=== PATIENT | female | born 1950 | race Caucasian/White ===

== ENCOUNTER → 2017-12-05 | Outpatient (CLI) | payer OTHER, BC ==
--- NOTE | 2017-12-05 15:52 | 2DMMODE ---
[place] [address] 2 D/M-MODE ECHOCARDIOGRAM Name: LUISA KIRKPATRICK I Room: [facility]#: [id number] Admission: 12/05/17 Attend Phys: Pardeep Adorno, Discharge: Date of : 50 Date of Service: 12/05/17 1551 Report #: [id number] THIS REPORT FOR: //name// APPROVED REPORT Study performed: 12/05/2017 13:02:38 EXAM: Comprehensive 2D, Doppler, and color-flow Echocardiogram Patient Location: Out-Patient Status: routine BSA: 0.39 HR: 70 bpm BP: 140/80 mmHg Other Information Study Quality: Good Indications Aortic Valve Disease 2D Dimensions LVEF(%): 66.72 (>50%) IVSd: 10.15 (7-11mm) LVOT Diam: 20.18 (18-24mm) LVDd: 43.50 mm PWd: 9.20 (7-11mm) Ascending Ao: 30.11 (22-36mm) LVDs: 27.55 (25-40mm) Aortic Root: 21.26 mm Pradhan's LVEF: 66.72 % Volumes Left Atrial Volume (Systole) LA ESV Index: 15.90 mL/m2 Aortic Valve AoV Peak Gato.: 1.80 m/s AO Peak Gr.: 13.00 mmHg LVOT Max P.05 mmHg AO Mean Gr.: 7.45 mmHg LVOT Mean P.12 mmHg LVOT Max V: 1.33 m/s AO V2 VTI: 38.96 cm LVOT Mean V: 0.96 m/s BALBINA (VTI): 2.37 cm2 LVOT V1 VTI: 28.88 cm Mitral Valve E/A Ratio: 0.78 MV Decel. Time: 292.14 [place] [address] 2 D/M-MODE ECHOCARDIOGRAM Name: LUISA KIRKPATRICK Ozzie Room: [facility]#: [id number] Admission: 12/05/17 Attend Phys: Pardeep Adorno, Discharge: Date of : 50 Date of Service: 12/05/17 1551 Report #: [id number] MV E Max Gato.: 0.73 m/s MV PHT: 84.72 ms MVA (PHT): 2.60 cm2 TDI E/Lateral E': 10.43 E/Medial E': 10.43 Medial E' Gato.: 0.07 m/s Lateral E' Gato.: 0.07 m/s Pulmonary Valve PV Peak Gato.: 0.97 m/s PV Peak Gr.: 3.78 mmHg Tricuspid Valve TR Peak Gr.: 22.37 mmHg RVSP: 27.37 mmHg Left Ventricle The left ventricle is normal size. There is normal LV segmental wall motion. There is normal left ventricular wall thickness. Left ventricular systolic function is normal. The left ventricular ejection fraction is within the normal range. LVEF is 60-65%. Grade I - abnormal relaxation pattern. Right Ventricle The right ventricle is normal size. The right ventricular systolic function is normal. Atria The left atrium size is normal. The right atrium size is normal. Aortic Valve The Aortic valve is mildly sclerotic. No aortic regurgitation is present. There is no aortic valvular stenosis. Mitral Valve The mitral valve is normal in structure. There is no mitral valve regurgitation noted. No evidence of mitral valve stenosis. Tricuspid Valve The tricuspid valve is normal in structure. Mild tricuspid regurgitation. The RVSP is _27.4 mmHg. Pulmonic Valve The pulmonary valve is normal in structure. There is no pulmonic [place] [address] 2 D/M-MODE ECHOCARDIOGRAM Name: LUISA KIRKPATRICK I Room: [facility]#: [id number] Admission: 12/05/17 Attend Phys: Pardeep Adorno, Discharge: Date of : 50 Date of Service: 12/05/17 1551 Report #: [id number] Great Vessels The aortic root is normal in size. IVC is normal in size and collapses with >50% inspiration Pericardium There is no pericardial effusion. <Conclusion> The left ventricle is normal size. There is normal left ventricular wall thickness. Left ventricular systolic function is normal. The left ventricular ejection fraction is within the normal range. LVEF is 60-65%. Grade I - abnormal relaxation pattern. The right ventricle is normal size. The left atrium size is normal. The Aortic valve is mildly sclerotic. No aortic regurgitation is present. There is no aortic valvular stenosis. The mitral valve is normal in structure. The tricuspid valve is normal in structure. Mild tricuspid regurgitation. The RVSP is _27.4 mmHg. IVC is normal in size and collapses with >50% inspiration There is no pericardial effusion. There is normal LV segmental wall motion. <ELECTRONICALLY SIGNED> By: Surendra Washington MD, FACC 12/05/17 [phone] Surendra Washington MD, FACC /INF
== END ==
LOC: M.CRD 12:56
DX: I07.1 Rheumatic tricuspid insufficiency (principal); I35.0 Nonrheumatic aortic (valve) stenosis

== ENCOUNTER → 2019-05-13 | Outpatient (CLI) | payer OTHER, BC ==
--- NOTE | 2019-05-13 15:52 | CARDNUC ---
[place] [address] CARDIAC NUCLEAR IMAGING REPORT Name: LUISA KIRKPATRICK I Room: [facility]#: [id number] Admission: 05/13/19 Attend Phys: Pardeep Adorno, Discharge: Date of : 50 Date of Service: 05/13/19 1551 Report #: [id number] THIS REPORT FOR: //name// APPROVED REPORT Imaging Protocol: Rest Tc-99m/Stress Tc-99m 1 day Study performed: 05/13/2019 07:45:00 Indication: Chest pain NM Tech:JJ Dominguez BMI: 0 Medical History Medical History: Angina, Aortic Stenosis, Diabetes, Murmur, HTN, Hyperlipidemia, Second hand smoke exposure. Medications: Atorvastatin, Lisinopril, Fenofibrate, Propranolol, Glipizide, Tresiba, Metformin. Allergies: No known drug allergies Cardiac Risk Factors: Age, DM, FHX of CAD, HTN, Hyperlipidemia, Second hand smoke, Aortic Stenosis, Murmur. Previous Cardiac Procedures: None Pretest Chest Pain Characteristics: No chest pain Exercise History: Indeterminate Physical Disabilities: Murmur, bad knees. Meds Held (24 hrs): Propranolol Resting Data Rest SPECT myocardial perfusion imaging was performed in supine position 30 minutes following the intravenous injection of 11.4 mCi of Tc-99m Sestamibi. Time of rest injection: 0750 Date: 05/13/2019 The images were gated to evaluate regional wall motion and calculate left ventricular ejection fraction. Administration Route: IV Administration Site: Right AC Pharmacologic Stress Pharmacologic stress test was performed by injecting Regadenoson 0.4 mg IV push over 10-15 seconds immediately followed by the intravenous injection of 34.4 mCi of Tc-99m Sestamibi. Time of stress injection: 919 Date: 05/13/2019 Administration Route: IV Administration Site: Right AC Gated Stress SPECT was performed 40 [place] [address] CARDIAC NUCLEAR IMAGING REPORT Name: LUISA KIRKPATRICK I [facility] [id number] Admission: 05/13/19 Attend Phys: Pardeep Adorno, Discharge: Date of : 50 Date of Service: 05/13/19 1551 Report #: [id number] injection. The images were gated to evaluate regional wall motion and calculate left ventricular ejection fraction. Prone imaging was performed. Stress Test Details Stress Test: Pharmacologic stress testing performed using 0.4 mg of regadenoson per 5 mL given IV over 10 seconds. Reason for pharmacologic stress test: Murmur, bad knees.. HR Max Heart Rate (APMHR): 152 bpm Resting HR: 63 bpm Target HR (85% APMHR): 129 bpm Max HR Achieved: 100 bpm % of APMHR: 65 Recovery HR: 90 bpm BP Resting BP: 138/65 mmHg Max BP: 170/86 mmHg Recovery BP: 161/82 mmHg ECG Resting ECG: Sinus Rhythm Stress ECG: Sinus Rhythm ST Change: None Arrhythmia: None Recovery ECG: Sinus Rhythm Recovery ST Change: None Recovery Arrhythmia: None Clinical Reason for Termination: Completed protocol Stress Symptoms: Dyspnea Exercise duration: 00 min 00 sec Exercise capacity: 1.00 METs The patient tolerated Lexiscan infusion without significant cardiac symptoms. Nurse Comments A 68 year old female presented for sitting Lexiscan Nuclear Stress test r/t recent CP. Test well tolerated. Recovery unremarkable with PO caffeine, effective. Patient was escorted by staff to Nuclear Medicine for images. Patient was stable with no complaints at that time. Stress ECG Conclusion The baseline 12-lead EKG shows sinus rhythm [place] [address] CARDIAC NUCLEAR IMAGING REPORT Name: LUISA KIRKPATRICK I Room: [facility]#: [id number] Admission: 05/13/19 Attend Phys: Pardeep Adorno, Discharge: Date of : 50 Date of Service: 05/13/19 1551 Report #: [id number] T wave abnormality. EKGs obtained during and post Lexiscan infusion show sinus rhythm with no significant ST or T wave changes when compared to baseline. There were no stress-induced arrhythmias. Study Quality Study: Good Artifact: No artifact Study Data At rest, the left ventricular ejection fraction was 81%.. Post stress, the left ventricular ejection was 84%.. TID = 1.13. Perfusion Normal left ventricular perfusion. Wall Motion Normal left ventricular wall motion. Nuclear Conclusion ECG Findings: negative for ischemia Clinical Findings: negative for ischemia Nuclear Findings: negative for ischemia Exercise Capacity: not assessed Left Ventricular Function: normal Risk Study: low Myocardial perfusion images show no defect to suggest infarct or ischemia. Left ventricular systolic function appears normal on gated studies. A low risk study. <Conclusion> The baseline 12-lead EKG shows sinus rhythm without significant ST or T wave abnormality. EKGs obtained during and post Lexiscan infusion show sinus rhythm with no significant ST or T wave changes when compared to baseline. There were no stress-induced arrhythmias. <ELECTRONICALLY SIGNED> By: Pardeep Adorno MD, FACC 05/13/19 1551 1551 1551 Pardeep Adorno MD, FACC /INF
== END ==
LOC: M.NUC 04-15 08:52
DX: R07.2 Precordial pain (principal); E11.9 Type 2 diabetes mellitus without complications; I10 Essential (primary) hypertension; E78.5 Hyperlipidemia, unspecified; Z77.29 Contact with and (suspected) exposure to other hazardous substances; Z79.899 Other long term (current) drug therapy

== ENCOUNTER → 2020-06-16 | Outpatient (CLI) | payer MEDICARE, BC | LOC: M.RAD 12:02 | PROVIDERS: ATTEND Nurse Practitioner Adult Health | DX: Z12.31 Encounter for screening mammogram for malignant neoplasm of breast (principal) ==

== ENCOUNTER → 2020-07-13 | Outpatient (CLI) | payer MEDICARE, BC ==
--- NOTE | 2020-07-13 13:36 | 2DMMODE ---
[place] [address] 2 D/M-MODE ECHOCARDIOGRAM Name: LUISA KIRKPATRICK I Room: [facility]#: [id number] Admission: 07/13/20 Attend Phys: Pardeep Adorno, Discharge: Date of : 50 Date of Service: 07/13/20 1336 Report #: [id number] THIS REPORT FOR: cc: PILO AJ NP, AMY NP Liston, Michael J. MD [facility] ~ APPROVED REPORT Study performed: 07/13/2020 07:53:45 EXAM: Comprehensive 2D, Doppler, and color-flow Echocardiogram Patient Location: Out-Patient BSA: 1.80 HR: 67 bpm BP: 120/68 mmHg Other Information Study Quality: Good Indications Aortic Valve Disease 2D Dimensions IVSd: 9.39 (7-11mm) LVOT Diam: 19.98 (18-24mm) LVDd: 41.07 mm PWd: 9.33 (7-11mm) Ascending Ao: 29.02 (22-36mm) LVDs: 25.49 (25-40mm) Aortic Root: 24.63 mm Volumes Left Atrial Volume (Systole) LA ESV Index: 20.30 mL/m2 Aortic Valve AoV Peak Gato.: 2.07 m/s AO Peak Gr.: 17.07 mmHg LVOT Max P.42 mmHg AO Mean Gr.: 9.65 mmHg LVOT Mean P.76 mmHg LVOT Max V: 1.16 m/s AO V2 VTI: 48.75 cm LVOT Mean V: 0.77 m/s BALBINA (VTI): 1.99 cm2 LVOT V1 VTI: 30.98 cm Mitral Valve E/A Ratio: 0.81 [place] [address] 2 D/M-MODE ECHOCARDIOGRAM Name: LUISA KIRKPATRICK I Room: [facility]#: [id number] Admission: 07/13/20 Attend Phys: Pardeep Adorno, Discharge: Date of : 50 Date of Service: 07/13/20 1336 Report #: [id number] MV Decel. Time: 217.55 ms MV E Max Gato.: 0.67 m/s MV PHT: 63.09 ms MVA (PHT): 3.49 cm2 TDI E/Lateral E': 7.44 E/Medial E': 9.57 Medial E' Gato.: 0.07 m/s Lateral E' Gato.: 0.09 m/s Pulmonary Valve PV Peak Gato.: 0.93 m/s PV Peak Gr.: 3.45 mmHg Tricuspid Valve RAP Estimate: 5.00 mmHg TR Peak Gr.: 18.51 mmHg RVSP: 23.51 mmHg PA Pressure: 23.51 mmHg Left Ventricle The left ventricle is normal size. There is normal LV segmental wall motion. There is normal left ventricular wall thickness. Left ventricular systolic function is normal. LVEF is 55-60%. Grade I - abnormal relaxation pattern. Right Ventricle The right ventricle is normal size. The right ventricular systolic function is normal. Atria The left atrium size is normal. The right atrium size is normal. Aortic Valve The Aortic valve is sclerotic. No aortic regurgitation is present. Mild aortic stenosis. Mitral Valve The mitral valve is normal in structure. Trace mitral regurgitation. No evidence of mitral valve stenosis. Tricuspid Valve The tricuspid valve is normal in structure. Trace to mild tricuspid regurgitation. No pulmonary hypertension. Pulmonic Valve The pulmonary valve is normal in structure. [place] [address] 2 D/M-MODE ECHOCARDIOGRAM Name: LUISA KIRKPATRICK I [id number] Admission: 07/13/20 Attend Phys: Pardeep Adorno, Discharge: Date of : 50 Date of Service: 07/13/20 1336 Report #: [id number] valvular regurgitation. Great Vessels The aortic root is normal in size. IVC is normal in size and collapses >50% with inspiration. Pericardium There is no pericardial effusion. <Conclusion> The left ventricle is normal size. There is normal left ventricular wall thickness. Left ventricular systolic function is normal. LVEF is 55-60%. Grade I - abnormal relaxation pattern. The Aortic valve is sclerotic. Mild aortic stenosis. Trace mitral regurgitation. Trace to mild tricuspid regurgitation. No pulmonary hypertension. IVC is normal in size and collapses >50% with inspiration. <ELECTRONICALLY SIGNED> By: Pardeep Adorno MD, FACC 07/13/20 1336 1336 133 Pardeep Adorno MD, FACC /INF
--- NOTE | 2020-07-13 13:39 | CARDNUC ---
[place] [address] CARDIAC NUCLEAR IMAGING REPORT Name: LUISA KIRKPATRICK I Room: [facility]#: [id number] Admission: 07/13/20 Attend Phys: Pardeep Adorno, Discharge: Date of : 50 Date of Service: 07/13/20 1339 Report #: [id number] THIS REPORT FOR: cc: PILO AJ NP, AMY NP Liston, Michael J. MD [facility] ~ APPROVED REPORT Study performed: 07/13/2020 10:42:57 Exam: Nuclear Stress Test Indication: Chest pain, aortic valve stenosis. Patient Location: Out-Patient Stress Tech: Kourtney Cantu Stress Nurse: Nereyda Donaldson R.N. Ht: 5 ft 2 in Wt: 174 lbs BSA: 1.80 m2 BMI: 31.82 Medical History Medical History: Chest pain, aortic valve stenosis/mild murmur, HTN, HLD, dizziness r/t treatment/injections for neck tremors-pain. Medications: Atorvastatin, Fenofibrate, Lisinopril. Allergies: No known drug allergies Cardiac Risk Factors: Age, DM, FHX of CAD, HTN, Hyperlipidemia, Aortic valve stenosis/murmur. Previous Cardiac Procedures: None Pretest Chest Pain Characteristics: No chest pain Exercise History: Indeterminate Physical Disabilities: Aortic valve stenosis/murmur. Meds Held (24 hrs): None Stress Test Details Stress Test: Pharmacologic stress was paired with low level exercise. Reason for pharmacologic stress test: Aortic valve stenosis/murmur.. HR Resting HR: 64 bpm Max Heart Rate (APMHR): 150 bpm Max HR Achieved: 111 bpm Target HR (85% APMHR): 127 bpm % of APMHR: 74 Recovery HR: [place] [address] CARDIAC NUCLEAR IMAGING REPORT Name: KAYALUISA Ozzie Room: [facility]#: [id number] Admission: 07/13/20 Attend Phys: Pardeep Adorno, Discharge: Date of : 50 Date of Service: 07/13/20 1339 Report #: [id number] Resting BP: 135/79 mmHg Max BP: 183/76 mmHg ECG Resting ECG: Sinus Rhythm Stress ECG: Sinus Tachycardia ST Change: None Arrhythmia: None Recovery ECG: Sinus Rhythm Recovery ST Change: None Recovery Arrhythmia: None Clinical Reason for Termination: Completed protocol Stress Symptoms: Dyspnea, lightheadedness, hip pain. Exercise duration: 4 min 00 sec Exercise capacity: 2.30 METs The patient tolerated walking Lexiscan protocol without significant cardiac symptoms. Nurse Comments A 70 year old female presented for a walking Lexiscan r/t chest pain, aortic valve stenosis. Test well tolerated. Recovery unremarkable. Patient was stable and stated she felt good when escorted to Nuclear Medicine for imaging. Stress ECG Conclusion The baseline twelve-lead EKG shows sinus rhythm without significant ST segment abnormality. EKG today during and post walking Lexiscan protocol show sinus rhythm and sinus tachycardia with no significant ST segment or T wave changes when compared to baseline. NM EXAM: Myocardial Perfusion REST/STRESS Imaging Protocol: Rest Tc-99m/Stress Tc-99m 1 day Resting Data Rest SPECT myocardial perfusion imaging was performed in supine position 60 minutes following the intravenous injection of 10.2 mCi of Tc-99m Sestamibi. Time of rest injection: 09:00 The images were gated to evaluate regional wall motion and calculate left ventricular ejection fraction. Administration Route: IV Administration Site: [place] [address] CARDIAC NUCLEAR IMAGING REPORT Name: LUISA KIRKPATRICK I Room: [facility]#: [id number] Admission: 07/13/20 Attend Phys: Pardeep Adorno, Discharge: Date of : 50 Date of Service: 07/13/20 1339 Report #: [id number] Pharmacologic Stress Pharmacologic stress test was performed by injecting Regadenoson 0.4 mg IV push followed by the intravenous injection of 29.1 mCi of Tc-99m Sestamibi. Time of stress injection: 10:55 Administration Route: IV Administration Site: Left Hand Heart Rate at time of stress injection: 111 bpm. Gated Stress SPECT was performed 40 minutes after stress injection. The images were gated to evaluate regional wall motion and calculate left ventricular ejection fraction. Prone imaging was performed. Study Quality Study: Good Artifact: No artifact Study Data At rest, the left ventricular ejection fraction was 72%.. Post stress, the left ventricular ejection was 80%.. TID = 1.00. Perfusion Perfusion images obtained at rest and post stress show uniform uptake of the radioisotope throughout the myocardium. There were no defects to suggest infarct or ischemia. Wall Motion Normal left ventricular wall motion. Nuclear Conclusion ECG Findings: negative for ischemia Clinical Findings: negative for ischemia Nuclear Findings: negative for ischemia Exercise Capacity: not assessed Left Ventricular Function: normal Risk Study: low Myocardial perfusion images show no defect to suggest infarct or ischemia. Left ventricular systolic function appears normal on gated studies. This is a low risk study. <Conclusion> The baseline twelve-lead EKG shows sinus rhythm without significant ST segment abnormality. EKG today [place] [address] CARDIAC NUCLEAR IMAGING REPORT Name: LUISA KIRKPATRICK I Room: [facility]#: [id number] Admission: 07/13/20 Attend Phys: Pardeep Adorno, Discharge: Date of : 50 Date of Service: 07/13/20 1339 Report #: [id number] protocol show sinus rhythm and sinus tachycardia with no significant ST segment or T wave changes when compared to baseline. <ELECTRONICALLY SIGNED> By: Pardeep Adorno MD, FACC 07/13/20 1339 38 38 Pardeep Adorno MD, FACC /INF
== END ==
LOC: M.CRD 06-16 13:28 → M.NUC 07-06 08:00 → M.CRD 07-06 11:00
PROVIDERS: ATTEND Internal Medicine Cardiovascular Disease
DX: I35.0 Nonrheumatic aortic (valve) stenosis (principal); R00.0 Tachycardia, unspecified; R07.2 Precordial pain; R06.00 Dyspnea, unspecified; R55 Syncope and collapse

== ENCOUNTER → 2021-03-16 | Outpatient (CLI) | payer OTHER, BC ==
[2021-03-16 12:40] LABS: CHOLESTEROL 117 mg/dL (<200); HDL CHOLESTEROL 34 mg/dL (>40); LDL CHOLESTEROL 59 mg/dL (<100); SERUM ASSESSMENT Clear; TC:HDL 3.4 Ratio (Not establshd); TRIGLYCERIDE 124 mg/dL (<150); VLDL 25 mg/dL (<40)
== END ==
LOC: M.LAB 12:15
PROVIDERS: ATTEND Registered Nurse
DX: E78.2 Mixed hyperlipidemia (principal)

== ENCOUNTER → 2021-05-06 | Outpatient (CLI) | payer OTHER, BC | LOC: M.RAD 13:46 | PROVIDERS: ATTEND Nurse Practitioner Adult Health | DX: Z12.31 Encounter for screening mammogram for malignant neoplasm of breast (principal) ==